=== PATIENT | female | born 1990 ===

== ENCOUNTER 2018-04-30 15:11 | Emergency (ER) | payer BC, OTHER ==
[2018-04-30 15:11] VITALS: BMI 28.3
[2018-04-30 15:21] VITALS: RESP 18; TEMP 98.1; O2SAT 100
[2018-04-30] MEDS ORDERED: Albuterol-Ipratrop 3 mg / 0.5 (3 ml) UD IH STA (17:08)
--- NOTE | 2018-04-30 17:13 | ED PDOC ---
HPI: Chest Pain Time Seen by Provider: 04/30/18 17:03 Chief Complaint (Nursing): Chest Pain History Per: Patient Onset/Duration Of Symptoms: Days (2) Current Symptoms Are (Timing): Still Present Severity: Moderate Quality: Tightness Modifying Factors: None Exacerbating Factors: None Additional Complaint(s): Chest tightness with pain on inspiration and scant non-productive cough x 2 days.Denies fever or SOB Past Medical History Vital Signs: Last Vital Signs Temp 98.1 F 04/30/18 15:20 Pulse 61 04/30/18 15:20 Resp 18 04/30/18 15:20 BP 118/71 04/30/18 15:20 Pulse Ox 100 04/30/18 15:20 - Medical History PMH: No Chronic Diseases Denies: Depression - Family History Family History: States: Unknown Family Hx - Immunization History Hx Tetanus Toxoid Vaccination: No - Home Medications Home Medications: Ambulatory Orders Medication Instructions Recorded Guaifen/Phenyleph/Acetaminophn 20 ml PO Q4H PRN 08/31/14 [Mucinex Fast-Max Cold & Sinus 177 ml] Promethazine [Phenergan Rectal 1 tsp PO DAILY PRN 08/31/14 Supp] Amoxicillin 500 mg PO BID #14 cap 10/03/14 Antipyrine/Benzocaine [Auralgan 1 drop OT TID #10 marquez 10/03/14 Otic Marquez] Azithromycin [Zithromax] 250 mg PO DAILY #4 cap 03/26/15 Guaifenesin [Mucinex] 0 mg PO 03/26/15 Loratadine [Claritin] 10 mg PO DAILY #20 tab 03/26/15 Albuterol HFA [Ventolin HFA 90 2 puff IH Q4H #1 puff 04/30/18 mcg/actuation (8 g)] Azithromycin [Zithromax] 250 mg PO DAILY #6 tab 04/30/18 Prednisone 50 mg PO DAILY #5 tab 04/30/18 - Allergies Allergies/Adverse Reactions: Allergies Allergy/AdvReac Type Severity Reaction Status Date / Time No Known Allergies Allergy Verified 04/30/18 15:22 Review of Systems ROS Statement: Except As Marked, All Systems Reviewed And Found Negative Constitutional: Negative for: Fever Cardiovascular: Positive for: Chest Pain Respiratory: Positive for: Cough, Pleuritic Pain Physical Exam - Reviewed Nursing Documentation Reviewed: Yes Vital Signs Reviewed: Yes - Physical Exam Appears: Positive for: Non-toxic, No Acute Distress Head Exam: Positive for: ATRAUMATIC, NORMAL INSPECTION, NORMOCEPHALIC Skin: Positive for: Normal Color, Warm, DRY Eye Exam: Positive for: EOMI, Normal appearance, PERRL ENT: Positive for: Normal ENT Inspection Neck: Positive for: Normal, Painless ROM Cardiovascular/Chest: Positive for: Regular Rate, Rhythm Respiratory: Positive for: Wheezing (Mild expiratory wheeze right side). Negative for: Rhonchi, Respiratory Distress Gastrointestinal/Abdominal: Positive for: Normal Exam, Soft Back: Positive for: Normal Inspection Extremity: Positive for: Normal ROM Neurologic/Psych: Positive for: Alert, Oriented - ECG O2 Sat by Pulse Oximetry: 100 Medical Decision Making Medical Decision Making: Discussed with Dr. García. Can be dc'ed on Albuterol, Zithromax and steroids and will f/u in office. Disposition - Clinical Impression Clinical Impression: Bronchitis, Pleuritic chest pain - Patient ED Disposition Is Patient to be Admitted: No Counseled Patient/Family Regarding: Studies Performed, Diagnosis, Need For Followup, Rx Given - Disposition Referrals: Adan García MD [Family Provider] - Disposition: Routine/Home Disposition Time: 18:40 Condition: FAIR Prescriptions: Albuterol HFA [Ventolin HFA 90 mcg/actuation (8 g)] 2 puff IH Q4H #1 puff Azithromycin [Zithromax] 250 mg PO DAILY #6 tab Prednisone 50 mg PO DAILY #5 tab Instructions: Pleuritic Chest Pain, Acute Bronchitis Forms: [employer] ([place])
[2018-04-30] MEDS ORDERED: Albuterol-Ipratrop 3 mg / 0.5 (3 ml) UD ONE (17:32)
[2018-04-30 19:23] VITALS: BP 120/74; PULSE 72
--- NOTE | 2018-05-01 08:56 | RAD ---
Date of service: 04/30/2018 HISTORY: cough COMPARISON: No prior. TECHNIQUE: Chest PA and lateral FINDINGS: LUNGS: No active pulmonary disease. PLEURA: No significant pleural effusion identified. No pneumothorax apparent. CARDIOVASCULAR: No aortic atherosclerotic calcification present. Normal cardiac size. No pulmonary vascular congestion. OSSEOUS STRUCTURES: Lumbar dextroscoliosis. No significant abnormalities. VISUALIZED UPPER ABDOMEN: Normal. OTHER FINDINGS: None. IMPRESSION: No active disease.
--- NOTE | 2018-05-01 21:51 | CARD ---
APPROVED REPORT Date of service: 04/30/2018 EKG Measurement Heart [id number] VT [id number] <Conclusion> Normal sinus rhythm Normal ECG
== END 2018-04-30 18:40 | disposition home or self-care (01) ==
LOC: H.ER 15:11
DX: J40 Bronchitis, not specified as acute or chronic (principal); R07.1 Chest pain on breathing